=== PATIENT | female | born 1960 | race Caucasian/White ===

== ENCOUNTER 2017-07-28 08:47 | Day surgery (SDC) | payer OTHER ==
[2017-07-28] MEDS ORDERED: FENTAnyl 50 MCG/ML VIAL (10:47)
[2017-07-28] MEDS ORDERED: MIDAZOLAM 1 MG/ML 2 ML INJ ×3 (10:47)
== END 2017-07-28 11:06 | disposition home or self-care (01) ==
LOC: GIL 08:47
DX: R19.4 Change in bowel habit (principal); K57.90 Diverticulosis of intestine, part unspecified, without perforation or abscess without bleeding; K64.8 Other hemorrhoids; Z85.038 Personal history of other malignant neoplasm of large intestine
CPT/HCPCS: 43239

== ENCOUNTER 2018-11-10 05:28 | Inpatient (IN) | payer OTHER ==
[2018-11-09] MEDS: CEFAZOLIN 2 GM/50 ML (PMX) 50 ML IVPB (07:08)
[2018-11-10] MEDS ORDERED: BUPIVACAINE 0.5% (SDV) 30 ML, morphine SULFATE (PF) 8 MG, EPINEPHrine 0.3 MG, KETOROLAC... IRR (06:30)
[2018-11-10] MEDS: LACTATED RINGER'S 1,000 ML IV ×3 (06:34→14:30)
[2018-11-10] MEDS: POLYMYXIN/BACITRACIN 1L IRRIG (06:44)
[2018-11-10] MEDS ORDERED: THROMBIN (BOVINE) 5,000 UNIT VIAL TP (06:44)
[2018-11-10] MEDS ORDERED: CA CHLORIDE (GM) 10% 10 ML INJ (06:44)
[2018-11-10] MEDS: DEXAMETHASONE 1 MG TAB PO (06:46)
[2018-11-10] MEDS: GABAPENTIN 300 MG CAP PO ×2 (06:46→21:28)
[2018-11-10] MEDS: TRANEXAMIC ACID 1GM/100ML(PMX) 100 ML IVPB (07:00)
[2018-11-10] MEDS ORDERED: morphine SULFATE/PF (10 MG/10 ML) INJ (07:02)
[2018-11-10] MEDS ORDERED: MIDAZOLAM 1 MG/ML 2 ML INJ (07:02)
[2018-11-10] MEDS: CEFAZOLIN 2 GM/50 ML (PMX) 50 ML IVPB (07:08)
[2018-11-10] MEDS ORDERED: TRANEXAMIC ACID 1GM/100ML(PMX) 200 ML (07:34)
[2018-11-10] MEDS: SOD CHLORIDE 0.9% 100 ML, TRANEXAMIC ACID 3,000 MG IRR (08:00)
[2018-11-10] MEDS ORDERED: LIDOCAINE 2% (SDV) 5 ML INJ (08:53)
[2018-11-10] MEDS ORDERED: ETOMIDATE 20 MG INJ (08:53)
[2018-11-10] MEDS ORDERED: ROCURONIUM 50 MG INJ (08:53)
[2018-11-10] MEDS ORDERED: CEFAZOLIN 1 GM INJ (08:54)
[2018-11-10] MEDS ORDERED: ONDANSETRON 4 MG INJ (08:54)
[2018-11-10] MEDS ORDERED: HYDROmorphONE 1 MG/5 ML IV SYRINGE IV ×2 (09:30)
[2018-11-10] MEDS ORDERED: NACL 0.9% 3 ML SYG IV (09:30)
[2018-11-10] MEDS ORDERED: METOCLOPRAMIDE 10 MG INJ IV (09:30)
[2018-11-10] MEDS ORDERED: MEPERIDINE 25 MG INJ IV (09:30)
[2018-11-10] MEDS ORDERED: oxyCODONE 5 MG TAB PO ×2 (09:30)
[2018-11-10] MEDS ORDERED: ONDANSETRON 4 MG INJ IV ×2 (09:30)
[2018-11-10] MEDS ORDERED: FENTAnyl 50 MCG/ML VIAL IV (09:30)
[2018-11-10] MEDS ORDERED: DIPHENHYDRAMINE 50 MG INJ IV ×2 (09:30)
[2018-11-10] MEDS ORDERED: MAGNESIUM HYDROXIDE 30ML CUP PO (09:30)
[2018-11-10] MEDS ORDERED: HYDROmorphONE 1 MG/ML SYG IV (09:30)
[2018-11-10] MEDS ORDERED: ZOLPIDEM 5 MG TAB PO (09:30)
[2018-11-10 09:38] LABS: ADD MAN DIFF? NO
[2018-11-10 09:42] LABS: WHITE BLOOD COUNT 10.2 10^3/ul (4.8-10.8)
[2018-11-10 09:42] LABS: BASOPHILS % 0.2 % (0.0-2.0); EOSINOPHILS % 0.2 % (0.0-7.0); HEMATOCRIT 32.6 % (37.0-47.0); HEMOGLOBIN 10.9 g/dl (12.0-16.0); LYMPHOCYTES # 1.7 10^3/ul (0.8-2.9); LYMPHOCYTES % 16.2 % (15.0-51.0); MEAN CORPUSCULAR HEMOGLOBIN 31.3 pg (29.0-33.0); MEAN CORPUSCULAR HGB CONC 33.4 g/dl (32.0-37.0); MEAN CORPUSCULAR VOLUME 93.7 fl (82.0-101.0); MEAN PLATELET VOLUME 10.8 fl (7.4-10.4); MONOCYTE # 0.4 10^3/ul (0.3-0.9); MONOCYTES % 3.4 % (0.0-11.0); NEUTROPHIL # 8.1 10^3/ul (1.6-7.5); NEUTROPHILS % 78.8 % (39.0-77.0); RED BLOOD COUNT 3.48 10^6/ul (4.20-5.40)
[2018-11-10 09:46] LABS: PLATELET COUNT 186 10^3/UL (140-415); POSITIVE DIFF @See below
[2018-11-10] MEDS: ACETAMINOPHEN 1000MG/100ML IV 100 ML IVPB ×2 (10:04→18:11)
[2018-11-10] MEDS: DEXAMETHASONE 2 MG TAB PO ×2 (14:29→18:11)
[2018-11-10] MEDS: CEFAZOLIN 1 GM/50 ML (PMX) 50 ML IVPB ×2 (14:29→21:30)
[2018-11-10] MEDS: SENNA/DOCUSATE NA (8.6MG/50MG) TAB PO (21:28)
[2018-11-10] MEDS: oxyCODONE 5 MG TAB PO (21:28)
[2018-11-11] MEDS: DEXAMETHASONE 2 MG TAB PO ×2 (00:37→06:12)
[2018-11-11] MEDS: ACETAMINOPHEN 1000MG/100ML IV 100 ML IVPB (00:42)
[2018-11-11] MEDS: LACTATED RINGER'S 1,000 ML IV (00:51)
[2018-11-11 05:16] LABS: ADD MAN DIFF? NO
[2018-11-11 05:33] LABS: HEMATOCRIT 30.4 % (37.0-47.0); HEMOGLOBIN 10.1 g/dl (12.0-16.0); LYMPHOCYTES # 0.7 10^3/ul (0.8-2.9); LYMPHOCYTES % 7.2 % (15.0-51.0); MEAN CORPUSCULAR HEMOGLOBIN 31.1 pg (29.0-33.0); MEAN CORPUSCULAR HGB CONC 33.2 g/dl (32.0-37.0); MEAN CORPUSCULAR VOLUME 93.5 fl (82.0-101.0); MEAN PLATELET VOLUME 10.8 fl (7.4-10.4); MONOCYTES % 9.4 % (0.0-11.0); NEUTROPHIL # 8.5 10^3/ul (1.6-7.5); PLATELET COUNT 194 10^3/UL (140-415); RED BLOOD COUNT 3.25 10^6/ul (4.20-5.40); RED CELL DISTRIBUTION WIDTH 13.2 % (11.5-14.5)
[2018-11-11 05:33] LABS: WHITE BLOOD COUNT 10.2 10^3/ul (4.8-10.8)
[2018-11-11] MEDS: CEFAZOLIN 1 GM/50 ML (PMX) 50 ML IVPB (06:13)
[2018-11-11] MEDS: oxyCODONE 5 MG TAB PO ×2 (06:21→13:18)
[2018-11-11] MEDS: ASPIRIN (EC) 325 MG TAB PO (08:27)
[2018-11-11] MEDS: SENNA/DOCUSATE NA (8.6MG/50MG) TAB PO (08:27)
[2018-11-12] MEDS ORDERED: MAGNESIUM HYDROXIDE 30ML CUP PO (21:00)
== END 2018-11-11 15:30 | disposition home or self-care (01) | DRG 470 ==
LOC: REC 05:28 → MS1 11:21
PROVIDERS: Orthopaedic Surgery
PROC: 0SR904A Replacement of Right Hip Joint with Ceramic on Polyethylene Synthetic Substitute, Uncemented, Open Approach (ICD-10-PCS; principal; 2018-11-10 07:00)
DX: M16.12 Unilateral primary osteoarthritis, left hip (principal)
CPT/HCPCS: 72170; 73530; 85025; 86999; 87086; 88304; 88311; 97161

== ENCOUNTER 2019-03-01 11:14 | Emergency (ER) | payer OTHER | END 2019-03-01 12:21 | disposition home or self-care (01) | LOC: FTE 11:14 | DX: M79.672 Pain in left foot (principal); Z85.038 Personal history of other malignant neoplasm of large intestine | CPT/HCPCS: 73630; 73630-LT; 99283-25 ==